=== PATIENT | female | born 1955 | race Caucasian/White ===

== ENCOUNTER → 2016-12-26 | Outpatient (CLI) | payer OTHER ==
[~2016-12-26] MED LIST: ATIVAN0.5 MG PO; CHOLESTYRA PO; CLONAZEPAM0.5 MG PO; FLONASE ALLERG9.9 ML NS; HYZAAR 100-12.1 EACH PO; LOSARTAN POTASS1 TA2 PO; METOPROLOL TART25 MG PO; PRILOSEC 20MG20 MG PO; SERTRALINE100 MG PO; SYNTHROID PO; TOPROL XL 25MG25 MG PO
== END ==
LOC: LAB 16:19
DX: Z00.00 Encounter for general adult medical examination without abnormal findings (principal); E11.9 Type 2 diabetes mellitus without complications; E03.4 Atrophy of thyroid (acquired); M85.80 Other specified disorders of bone density and structure, unspecified site

== ENCOUNTER → 2017-01-03 | Outpatient (CLI) | payer OTHER ==
[2016-03-30 10:54] VITALS: BP 123/79
== END ==
LOC: LAB 16:45
DX: Z12.11 Encounter for screening for malignant neoplasm of colon (principal)

== ENCOUNTER → 2017-02-21 | Outpatient (CLI) | payer OTHER ==
[2016-03-30 10:54] VITALS: BP 123/79
== END ==
LOC: LAB 15:34
DX: R23.3 Spontaneous ecchymoses (principal)

== ENCOUNTER → 2017-05-16 | Outpatient (CLI) | payer OTHER ==
[2016-03-30 10:54] VITALS: BP 123/79
== END ==
LOC: LAB 15:26
DX: Z00.00 Encounter for general adult medical examination without abnormal findings (principal); K90.9 Intestinal malabsorption, unspecified

== ENCOUNTER → 2017-11-01 | Outpatient (CLI) | payer BC ==
[2016-03-30 10:54] VITALS: BP 123/79
== END ==
LOC: MAMMO 15:08 → RAD 15:15
DX: Z12.31 Encounter for screening mammogram for malignant neoplasm of breast (principal)

== ENCOUNTER → 2017-12-21 | Outpatient (CLI) | payer BC ==
[2016-03-30 10:54] VITALS: BP 123/79
[2017-12-21 12:12] LABS: EOS # 0.1 (0.04-0.40); EOS % 2.1 % (1.0-5.0); HEMATOCRIT 41.1 % (37.0-47.0); HEMOGLOBIN 13.3 g/dL (12.5-16.0); LYMPH# 1.4 (1.50-4.00); MEAN CELL VOLUME 83 fl (78-100); MEAN CORPUSCULAR HEMOGLOBIN 27 pg (27-31); MEAN CORPUSCULAR HGB CONC 32 g/dL (33-37); MEAN PLATELET VOLUME 8.8 fl (7.4-10.4); MONO # 0.4 (0.20-0.80); NEU # 4.3 (1.40-6.50); PLATELET COUNT 259 K/mm3 (130-400); RED BLOOD COUNT 4.97 M/mm3 (4.10-5.30); RED CELL DISTRIBUTION WIDTH 15.8 % (11.5-14.5); WHITE BLOOD COUNT 6.3 K/mm3 (4.8-10.8)
[2017-12-21 12:26] LABS: ALBUMIN 4.4 g/dL (3.5-5.0); BUN/CREATININE RATIO 15.2 (6.0-26.0); CALCIUM 9.4 mg/dL (8.4-10.2); POTASSIUM 3.8 mmol/L (3.6-5.0); TOTAL BILIRUBIN 0.3 mg/dL (0.2-1.3); TOTAL PROTEIN 7.5 g/dL (6.3-8.2)
[2017-12-21 12:48] LABS: URINE APPEARANCE HAZY; URINE BILIRUBIN NEGATIVE (NEGATIVE); URINE BLOOD NEGATIVE (NEGATIVE); URINE COLOR YELLOW; URINE GLUCOSE NEGATIVE (NEGATIVE); URINE KETONE NEGATIVE (NEGATIVE); URINE LEUKOCYTE ESTERASE NEGATIVE (NEGATIVE); URINE NITRATE NEGATIVE (NEGATIVE); URINE PROTEIN(semi-quant) NEGATIVE (NEGATIVE); URINE UROBILINOGEN NORMAL (NORMAL)
== END ==
LOC: LAB 11:56
PROVIDERS: Nurse Practitioner Family
DX: R53.81 Other malaise (principal); R10.32 Left lower quadrant pain; R19.7 Diarrhea, unspecified; J01.01 Acute recurrent maxillary sinusitis; R10.84 Generalized abdominal pain

== ENCOUNTER → 2018-03-01 | Outpatient (CLI) | payer BC ==
[2016-03-30 10:54] VITALS: BP 123/79
[2018-03-01 09:51] LABS: EOS # 0.1 (0.04-0.40); EOS % 2.2 % (1.0-5.0); HEMATOCRIT 39.2 % (37.0-47.0); HEMOGLOBIN 12.7 g/dL (12.5-16.0); LYMPH# 1.1 (1.50-4.00); MEAN CELL VOLUME 83 fl (78-100); MEAN CORPUSCULAR HEMOGLOBIN 27 pg (27-31); MEAN CORPUSCULAR HGB CONC 32 g/dL (33-37); MEAN PLATELET VOLUME 8.9 fl (7.4-10.4); MONO # 0.4 (0.20-0.80); NEU # 4.8 (1.40-6.50); PLATELET COUNT 247 K/mm3 (130-400); RED CELL DISTRIBUTION WIDTH 15.8 % (11.5-14.5); WHITE BLOOD COUNT 6.5 K/mm3 (4.8-10.8)
[2018-03-01 10:08] LABS: ALBUMIN 4.3 g/dL (3.5-5.0); CALCIUM 9.1 mg/dL (8.4-10.2); POTASSIUM 4.1 mmol/L (3.6-5.0); TOTAL BILIRUBIN 0.6 mg/dL (0.2-1.3); TOTAL PROTEIN 7.6 g/dL (6.3-8.2)
[2018-03-01 10:53] LABS: ERYTHROCYTE SEDIMENTATION RATE 37 mm/hr (0-30); PH-URINE 6.5 (5.0 - 8.0); URINE APPEARANCE CLEAR; URINE BILIRUBIN NEGATIVE (NEGATIVE); URINE BLOOD NEGATIVE (NEGATIVE); URINE COLOR YELLOW; URINE GLUCOSE NEGATIVE (NEGATIVE); URINE KETONE NEGATIVE (NEGATIVE); URINE LEUKOCYTE ESTERASE NEGATIVE (NEGATIVE); URINE NITRATE NEGATIVE (NEGATIVE); URINE PROTEIN(semi-quant) NEGATIVE (NEGATIVE); URINE UROBILINOGEN NORMAL (NORMAL)
== END ==
LOC: LAB 09:28
PROVIDERS: Internal Medicine
DX: Z00.00 Encounter for general adult medical examination without abnormal findings (principal); Z12.11 Encounter for screening for malignant neoplasm of colon

== ENCOUNTER → 2018-03-06 | Outpatient (CLI) | payer BC ==
[2016-03-30 10:54] VITALS: BP 123/79
== END ==
LOC: LAB 16:06
DX: Z00.00 Encounter for general adult medical examination without abnormal findings (principal); Z12.11 Encounter for screening for malignant neoplasm of colon

== ENCOUNTER 2018-06-20 13:58 | Emergency (ER) | payer BC ==
[~2018-06-20] VITALS: Ht 160 cm; Wt 88.6 kg
[2018-06-20] MEDS ORDERED: ABILIFY5 MG PO (14:08)
[2018-06-20] MEDS ORDERED: WELLBUTRIN XL300 M1 PO (14:08)
[2018-06-20] MEDS ORDERED: CYMBALTA60 M1 PO (14:08)
[2018-06-20 14:30] LABS: EOS # 0.2 (0.04-0.40); EOS % 2.6 % (1.0-5.0); HEMOGLOBIN 12.2 g/dL (12.5-16.0); LYMPH# 1.6 (1.50-4.00); MEAN CELL VOLUME 84 fl (78-100); MEAN CORPUSCULAR HEMOGLOBIN 28 pg (27-31); MEAN CORPUSCULAR HGB CONC 33 g/dL (33-37); MEAN PLATELET VOLUME 8.9 fl (7.4-10.4); MONO # 0.5 (0.20-0.80); NEU # 5.4 (1.40-6.50); PLATELET COUNT 265 K/mm3 (130-400); RED BLOOD COUNT 4.43 M/mm3 (4.10-5.30); WHITE BLOOD COUNT 7.7 K/mm3 (4.8-10.8)
[2018-06-20 14:45] LABS: ALBUMIN 4.1 g/dL (3.5-5.0); CALCIUM 8.9 mg/dL (8.4-10.2); POTASSIUM 3.6 mmol/L (3.6-5.0); TOTAL BILIRUBIN 0.5 mg/dL (0.2-1.3); TOTAL PROTEIN 6.7 g/dL (6.3-8.2)
[2018-06-20 15:07] LABS: URINE APPEARANCE HAZY; URINE BILIRUBIN NEGATIVE (NEGATIVE); URINE COLOR YELLOW; URINE GLUCOSE NEGATIVE (NEGATIVE); URINE KETONE NEGATIVE (NEGATIVE); URINE NITRATE NEGATIVE (NEGATIVE); URINE PROTEIN(semi-quant) NEGATIVE (NEGATIVE); URINE UROBILINOGEN NORMAL (NORMAL)
[2018-06-20 15:08] LABS: URINE BLOOD NEGATIVE (NEGATIVE); URINE LEUKOCYTE ESTERASE 1+ (NEGATIVE)
[2018-06-20] MEDS ORDERED: MACROBID 100 M100 MG PO (15:18)
[2018-06-20 15:21] VITALS: BP 140/75
== END 2018-06-20 15:20 | disposition home or self-care (01) ==
LOC: ED 13:58
PROVIDERS: Nurse Practitioner
DX: R53.81 Other malaise (principal); R53.83 Other fatigue; R63.8 Other symptoms and signs concerning food and fluid intake; R42 Dizziness and giddiness; R82.71 Bacteriuria; Z79.899 Other long term (current) drug therapy

== ENCOUNTER → 2018-10-11 | Outpatient (CLI) | payer BC ==
[~2018-10-11] MED LIST changes: +ABILIFY5 MG PO; +CYMBALTA60 M1 PO; +MACROBID 100 M100 MG PO; +WELLBUTRIN XL300 M1 PO
[2018-10-11 14:35] LABS: HEMATOCRIT 43.4 % (37.0-47.0); HEMOGLOBIN 13.9 g/dL (12.5-16.0); MEAN CELL VOLUME 84 fl (78-100); MEAN CORPUSCULAR HEMOGLOBIN 27 pg (27-31); MEAN CORPUSCULAR HGB CONC 32 g/dL (33-37); MEAN PLATELET VOLUME 8.8 fl (7.4-10.4); PLATELET COUNT 326 K/mm3 (130-400); RED BLOOD COUNT 5.15 M/mm3 (4.10-5.30); RED CELL DISTRIBUTION WIDTH 15.5 % (11.5-14.5); WHITE BLOOD COUNT 11.6 K/mm3 (4.8-10.8)
[2018-10-11 14:42] LABS: ALBUMIN 4.8 g/dL (3.5-5.0); POTASSIUM 4.4 mmol/L (3.6-5.0); TOTAL BILIRUBIN 0.5 mg/dL (0.2-1.3); TOTAL PROTEIN 7.9 g/dL (6.3-8.2)
[2018-10-11 15:56] LABS: LYMPHOCYTE 6 % (20-51); MONOCYTE 6 % (3-10); NEUTROPHILS 88 % (42-75)
== END ==
LOC: RAD 14:14
PROVIDERS: Internal Medicine
DX: R06.02 Shortness of breath (principal); R05 Cough; Z98.890 Other specified postprocedural states

== ENCOUNTER 2018-10-20 18:32 | Observation (INO) | payer BC ==
[~2018-10-20] VITALS: Ht 7.6 cm; Wt 85.8 kg
[2018-10-20] MEDS ORDERED: OMEPRAZOLE40 MG PO (18:44)
[2018-10-20] MEDS ORDERED: TESSALON PERLE100 M1 PO (18:45)
[2018-10-20] MEDS ORDERED: COL-RITE100 M1 PO (18:45)
[2018-10-20 18:50] VITALS: BP 123/71
[2018-10-20 19:28] LABS: EOS # 0.1 (0.04-0.40); EOS % 1.2 % (1.0-5.0); HEMATOCRIT 36.4 % (37.0-47.0); HEMOGLOBIN 12.8 g/dL (12.5-16.0); LYMPH# 1.7 (1.50-4.00); MEAN CELL VOLUME 79 fl (78-100); MEAN CORPUSCULAR HEMOGLOBIN 28 pg (27-31); MEAN CORPUSCULAR HGB CONC 35 g/dL (33-37); MEAN PLATELET VOLUME 9.4 fl (7.4-10.4); MONO # 0.9 (0.20-0.80); NEU # 6.5 (1.40-6.50); PLATELET COUNT 313 K/mm3 (130-400); RED BLOOD COUNT 4.63 M/mm3 (4.10-5.30); RED CELL DISTRIBUTION WIDTH 14.6 % (11.5-14.5); WHITE BLOOD COUNT 9.3 K/mm3 (4.8-10.8)
[2018-10-20 19:34] LABS: ALBUMIN 4.6 g/dL (3.5-5.0); CALCIUM 9.3 mg/dL (8.4-10.2); POTASSIUM 4.4 mmol/L (3.6-5.0); TOTAL BILIRUBIN 0.8 mg/dL (0.2-1.3); TOTAL PROTEIN 7.4 g/dL (6.3-8.2)
[2018-10-20] MEDS ORDERED: VITAMIN D32000 UNI1 PO (20:26)
[2018-10-20] MEDS ORDERED: CALCIUM 600600 MG PO (20:27)
[2018-10-20] MEDS ORDERED: PREDNISONE1 MG (20:28)
[2018-10-20] MEDS ORDERED: COLACE100 M1 PO (20:28)
[2018-10-20 20:33] VITALS: BP 132/78
[2018-10-20 23:13] VITALS: BP 114/71
[2018-10-20 23:14] VITALS: BP 114/71
[2018-10-21 02:56] VITALS: BP 116/67
[2018-10-21 06:33] VITALS: BP 112/71
[2018-10-21 08:20] LABS: EOS # 0.1 (0.04-0.40); EOS % 1.7 % (1.0-5.0); HEMATOCRIT 40.2 % (37.0-47.0); HEMOGLOBIN 13.7 g/dL (12.5-16.0); LYMPH# 1.3 (1.50-4.00); MEAN CELL VOLUME 80 fl (78-100); MEAN CORPUSCULAR HEMOGLOBIN 27 pg (27-31); MEAN CORPUSCULAR HGB CONC 34 g/dL (33-37); MEAN PLATELET VOLUME 9.4 fl (7.4-10.4); MONO # 0.6 (0.20-0.80); NEU # 3.7 (1.40-6.50); PLATELET COUNT 237 K/mm3 (130-400); RED BLOOD COUNT 5.02 M/mm3 (4.10-5.30); RED CELL DISTRIBUTION WIDTH 14.9 % (11.5-14.5); WHITE BLOOD COUNT 5.7 K/mm3 (4.8-10.8)
[2018-10-21 08:30] LABS: URINE APPEARANCE CLEAR; URINE BILIRUBIN NEGATIVE (NEGATIVE); URINE BLOOD NEGATIVE (NEGATIVE); URINE COLOR YELLOW; URINE GLUCOSE NEGATIVE (NEGATIVE); URINE KETONE 1+ (NEGATIVE); URINE LEUKOCYTE ESTERASE TRACE (NEGATIVE); URINE NITRATE NEGATIVE (NEGATIVE); URINE PROTEIN(semi-quant) TRACE mg/dL (NEGATIVE); URINE UROBILINOGEN NORMAL (NORMAL)
[2018-10-21 08:31] LABS: CALCIUM 8.8 mg/dL (8.4-10.2); POTASSIUM 4.3 mmol/L (3.6-5.0)
[2018-10-21 11:00] VITALS: BP 121/77
[2018-10-22 12:44] LABS: CORTISOL, AM (0800) 15 ug/dL (3-20)
[2018-10-23 13:06] LABS: ADRENOCORTICOTROPIC HORMONE 43 pg/mL (())
== END 2018-10-21 11:39 | disposition home or self-care (01) ==
LOC: LAB 18:32 → AMSURD 18:32 → MED/SURG 21:24
PROVIDERS: Physician Assistant; ADMIT Family Medicine
DX: E87.1 Hypo-osmolality and hyponatremia (principal); E86.9 Volume depletion, unspecified; J40 Bronchitis, not specified as acute or chronic; J32.9 Chronic sinusitis, unspecified; E11.9 Type 2 diabetes mellitus without complications; F41.9 Anxiety disorder, unspecified; I10 Essential (primary) hypertension; F32.9 Major depressive disorder, single episode, unspecified; E03.9 Hypothyroidism, unspecified; K21.9 Gastro-esophageal reflux disease without esophagitis; G47.33 Obstructive sleep apnea (adult) (pediatric); K29.70 Gastritis, unspecified, without bleeding; N28.9 Disorder of kidney and ureter, unspecified; Z88.2 Allergy status to sulfonamides
CPT/HCPCS: G0378; G0379; J1650; J7030

== ENCOUNTER → 2018-10-24 | Outpatient (CLI) | payer BC ==
[2018-10-21 11:00] VITALS: BP 121/77
[~2018-10-24] MED LIST changes: +CALCIUM 600600 MG PO; +COL-RITE100 M1 PO; +COLACE100 M1 PO; +OMEPRAZOLE40 MG PO; +PREDNISONE1 MG; +TESSALON PERLE100 M1 PO; +VITAMIN D32000 UNI1 PO
[2018-10-24 07:42] LABS: CALCIUM 9.6 mg/dL (8.4-10.2); POTASSIUM 3.7 mmol/L (3.6-5.0)
== END ==
LOC: LAB 07:14
PROVIDERS: Internal Medicine
DX: E87.1 Hypo-osmolality and hyponatremia (principal)

== ENCOUNTER → 2018-11-02 | Outpatient (CLI) | payer BC ==
[2018-10-21 11:00] VITALS: BP 121/77
[2018-11-02 19:58] LABS: CALCIUM 9.4 mg/dL (8.4-10.2); POTASSIUM 3.9 mmol/L (3.6-5.0)
== END ==
LOC: LAB 18:43
PROVIDERS: Internal Medicine
DX: E87.1 Hypo-osmolality and hyponatremia (principal)

== ENCOUNTER → 2018-12-06 | Outpatient (CLI) | payer BC | LOC: MAMMO 10:00 | DX: Z13.820 Encounter for screening for osteoporosis (principal); Z12.31 Encounter for screening mammogram for malignant neoplasm of breast ==

== ENCOUNTER 2019-02-04 15:26 | Emergency (ER) | payer BC ==
[~2019-02-04] VITALS: Ht 162.6 cm; Wt 79.5 kg
[2019-02-04] MEDS ORDERED: LEVOTHYROXINE0.05 MG PO (15:33)
[2019-02-04] MEDS ORDERED: LOPRESSOR 225 MG/TAB PO (15:34)
[2019-02-04] MEDS ORDERED: COLACE100 M1 PO (15:51)
[2019-02-04 16:12] LABS: EOS # 0.2 (0.04-0.40); EOS % 1.9 % (1.0-5.0); HEMATOCRIT 42.7 % (37.0-47.0); HEMOGLOBIN 13.7 g/dL (12.5-16.0); LYMPH# 1.5 (1.50-4.00); MEAN CELL VOLUME 83 fl (78-100); MEAN CORPUSCULAR HEMOGLOBIN 27 pg (27-31); MEAN CORPUSCULAR HGB CONC 32 g/dL (33-37); MEAN PLATELET VOLUME 9.4 fl (7.4-10.4); MONO # 0.6 (0.20-0.80); NEU # 7.2 (1.40-6.50); PLATELET COUNT 311 K/mm3 (130-400); RED BLOOD COUNT 5.13 M/mm3 (4.10-5.30); RED CELL DISTRIBUTION WIDTH 14.3 % (11.5-14.5); WHITE BLOOD COUNT 9.5 K/mm3 (4.8-10.8)
[2019-02-04 16:28] LABS: ALBUMIN 4.3 g/dL (3.4-4.8); CALCIUM 9.9 mg/dL (8.4-10.2); POTASSIUM 3.5 mmol/L (3.5-5.1); TOTAL BILIRUBIN 0.3 mg/dL (0.2-1.2); TOTAL PROTEIN 7.3 g/dL (6.2-8.1)
[2019-02-04 18:53] VITALS: BP 166/95
== END 2019-02-04 18:45 | disposition home or self-care (01) ==
LOC: ED 15:26
PROVIDERS: Nurse Practitioner Primary Care
DX: R19.7 Diarrhea, unspecified (principal); R10.9 Unspecified abdominal pain; I10 Essential (primary) hypertension; E03.9 Hypothyroidism, unspecified; K21.9 Gastro-esophageal reflux disease without esophagitis; K58.9 Irritable bowel syndrome, unspecified
CPT/HCPCS: J2405; J7030

== ENCOUNTER → 2019-02-07 | Outpatient (CLI) | payer BC, MEDICAID ==
[~2019-02-07] VITALS: Ht 162.6 cm; Wt 79.5 kg
[~2019-02-07] MED LIST changes: +LEVOTHYROXINE0.05 MG PO; +LOPRESSOR 225 MG/TAB PO
[2019-02-07 17:34] LABS: BASO # 0.1 (0.02-0.10); EOS # 0.2 (0.04-0.40); EOS % 2.1 % (1.0-5.0); HEMATOCRIT 41.7 % (37.0-47.0); HEMOGLOBIN 13.3 g/dL (12.5-16.0); LYMPH# 2.1 (1.50-4.00); MEAN CELL VOLUME 84 fl (78-100); MEAN CORPUSCULAR HEMOGLOBIN 27 pg (27-31); MEAN CORPUSCULAR HGB CONC 32 g/dL (33-37); MEAN PLATELET VOLUME 9.1 fl (7.4-10.4); MONO # 0.6 (0.20-0.80); NEU # 7.1 (1.40-6.50); PLATELET COUNT 341 K/mm3 (130-400); RED BLOOD COUNT 4.99 M/mm3 (4.10-5.30); RED CELL DISTRIBUTION WIDTH 14.2 % (11.5-14.5); WHITE BLOOD COUNT 10.1 K/mm3 (4.8-10.8)
[2019-02-07 18:00] VITALS: BP 176/96
[2019-02-07 18:04] LABS: PROTHROMBIN TIME 9.9 SECONDS (9.0-12.0)
[2019-02-07 18:16] LABS: URINE APPEARANCE CLEAR; URINE BILIRUBIN NEGATIVE (NEGATIVE); URINE BLOOD NEGATIVE (NEGATIVE); URINE COLOR LIGHT YELLOW; URINE GLUCOSE NEGATIVE (NEGATIVE); URINE KETONE NEGATIVE (NEGATIVE); URINE LEUKOCYTE ESTERASE NEGATIVE (NEGATIVE); URINE NITRATE NEGATIVE (NEGATIVE); URINE PROTEIN(semi-quant) TRACE mg/dL (NEGATIVE); URINE UROBILINOGEN NORMAL (NORMAL)
[2019-02-07 18:34] LABS: ALBUMIN 4.5 g/dL (3.4-4.8); CALCIUM 9.9 mg/dL (8.4-10.2); POTASSIUM 3.5 mmol/L (3.5-5.1); TOTAL BILIRUBIN 0.4 mg/dL (0.2-1.2); TOTAL PROTEIN 7.5 g/dL (6.2-8.1)
== END ==
LOC: LAB 17:16
PROVIDERS: Internal Medicine
DX: Z01.818 Encounter for other preprocedural examination (principal); M17.0 Bilateral primary osteoarthritis of knee

== ENCOUNTER → 2019-02-11 | Outpatient (CLI) | payer BC ==
[2019-02-07 18:00] VITALS: BP 176/96
== END ==
LOC: RAD 07:12
DX: Z01.818 Encounter for other preprocedural examination (principal); M17.0 Bilateral primary osteoarthritis of knee

== ENCOUNTER 2019-05-07 16:00 | Outpatient (RCR) | payer BC ==
[2019-02-07 18:00] VITALS: BP 176/96
== END 2019-05-23 | disposition still patient (30) ==
LOC: PT
DX: Z47.1 Aftercare following joint replacement surgery (principal); M17.11 Unilateral primary osteoarthritis, right knee; Z96.651 Presence of right artificial knee joint

== ENCOUNTER → 2019-05-24 | Outpatient (CLI) | payer BC ==
[2019-02-07 18:00] VITALS: BP 176/96
[2019-05-24 16:38] LABS: EOS # 0.2 (0.04-0.40); EOS % 2.4 % (1.0-5.0); HEMATOCRIT 39.9 % (37.0-47.0); HEMOGLOBIN 12.6 g/dL (12.5-16.0); LYMPH# 1.4 (1.50-4.00); MEAN CELL VOLUME 83 fl (78-100); MEAN CORPUSCULAR HEMOGLOBIN 26 pg (27-31); MEAN CORPUSCULAR HGB CONC 32 g/dL (33-37); MEAN PLATELET VOLUME 8.8 fl (7.4-10.4); MONO # 0.4 (0.20-0.80); NEU # 4.7 (1.40-6.50); PLATELET COUNT 281 K/mm3 (130-400); RED BLOOD COUNT 4.79 M/mm3 (4.10-5.30); RED CELL DISTRIBUTION WIDTH 15.1 % (11.5-14.5); WHITE BLOOD COUNT 6.6 K/mm3 (4.8-10.8)
[2019-05-24 16:48] LABS: POTASSIUM 3.6 mmol/L (3.5-5.1); SODIUM 140 mmol/L (136-145)
[2019-05-24 16:49] LABS: ALBUMIN 4.3 g/dL (3.4-4.8)
[2019-05-24 16:50] LABS: CALCIUM 9.3 mg/dL (8.3-10.5)
[2019-05-24 16:51] LABS: GLUCOSE 120 mg/dL (65-105); TOTAL PROTEIN 7.1 g/dL (6.2-8.1)
[2019-05-24 16:52] LABS: CARBON DIOXIDE 26 mmol/L (23-31)
[2019-05-24 16:53] LABS: TOTAL BILIRUBIN 0.2 mg/dL (0.2-1.2)
[2019-05-24 16:56] LABS: AST-SGOT 16 U/L (5-34)
[2019-05-24 16:58] LABS: ALT/SGPT 12 U/L (0-55)
[2019-05-24 17:44] LABS: ERYTHROCYTE SEDIMENTATION RATE 22 mm/hr (0-30)
[2019-05-24 18:00] LABS: URINE APPEARANCE HAZY; URINE BILIRUBIN NEGATIVE (NEGATIVE); URINE BLOOD NEGATIVE (NEGATIVE); URINE COLOR YELLOW; URINE GLUCOSE NEGATIVE (NEGATIVE); URINE KETONE NEGATIVE (NEGATIVE); URINE LEUKOCYTE ESTERASE 1+ (NEGATIVE); URINE NITRATE NEGATIVE (NEGATIVE); URINE PROTEIN(semi-quant) 1+ mg/dL (NEGATIVE); URINE UROBILINOGEN NORMAL (NORMAL); URINE WBC 31-50 /hpf (0-3)
[2019-05-24 18:01] LABS: URINE MUCUS PRESENT (NOT PRESENT)
== END ==
LOC: LAB 16:21
PROVIDERS: Internal Medicine
DX: Z00.00 Encounter for general adult medical examination without abnormal findings (principal); Z12.11 Encounter for screening for malignant neoplasm of colon; E55.9 Vitamin D deficiency, unspecified

== ENCOUNTER → 2019-06-03 | Outpatient (CLI) | payer BC ==
[2019-02-07 18:00] VITALS: BP 176/96
== END ==
LOC: LAB 16:25
DX: Z00.00 Encounter for general adult medical examination without abnormal findings (principal); Z12.11 Encounter for screening for malignant neoplasm of colon

== ENCOUNTER 2019-11-12 12:45 | Emergency (ER) | payer SELFPAY ==
[~2019-11-12] VITALS: Ht 160 cm; Wt 82.3 kg
[2019-11-12 13:15] LABS: EOS # 0.1 (0.04-0.40); EOS % 2.2 % (1.0-5.0); HEMATOCRIT 42.2 % (37.0-47.0); HEMOGLOBIN 13.5 g/dL (12.5-16.0); LYMPH# 1.1 (1.50-4.00); MEAN CELL VOLUME 84 fl (78-100); MEAN CORPUSCULAR HEMOGLOBIN 27 pg (27-31); MEAN CORPUSCULAR HGB CONC 32 g/dL (33-37); MEAN PLATELET VOLUME 8.8 fl (7.4-10.4); MONO # 0.5 (0.20-0.80); NEU # 4.6 (1.40-6.50); PLATELET COUNT 250 K/mm3 (130-400); RED BLOOD COUNT 5.04 M/mm3 (4.10-5.30); RED CELL DISTRIBUTION WIDTH 15.2 % (11.5-14.5); WHITE BLOOD COUNT 6.3 K/mm3 (4.8-10.8)
[2019-11-12 13:27] LABS: ALBUMIN 4.4 g/dL (3.4-4.8); POTASSIUM 3.9 mmol/L (3.5-5.1)
[2019-11-12 13:28] LABS: CALCIUM 8.9 mg/dL (8.3-10.5)
[2019-11-12 13:29] LABS: TOTAL PROTEIN 7.2 g/dL (6.2-8.1)
[2019-11-12 13:31] LABS: TOTAL BILIRUBIN 0.3 mg/dL (0.2-1.2)
[2019-11-12 13:42] LABS: TROPONIN-I 0.09 ng/mL (<0.030)
[2019-11-12] MEDS ORDERED: MELOXICAM15 MG PO (14:33)
[2019-11-12 17:43] VITALS: BP 172/88
== END 2019-11-12 17:50 | disposition short-term general hospital (02) ==
LOC: ED 12:45
PROVIDERS: Nurse Practitioner Family
DX: J01.90 Acute sinusitis, unspecified (principal); R79.89 Other specified abnormal findings of blood chemistry; I10 Essential (primary) hypertension; E11.9 Type 2 diabetes mellitus without complications; K21.9 Gastro-esophageal reflux disease without esophagitis; F41.9 Anxiety disorder, unspecified; Z96.651 Presence of right artificial knee joint
CPT/HCPCS: J1650; J7030

== ENCOUNTER → 2019-12-05 | Outpatient (CLI) | payer BC ==
[2019-11-12 17:43] VITALS: BP 172/88
[~2019-12-05] MED LIST changes: +MELOXICAM15 MG PO
== END ==
LOC: MAMMO 08:30
DX: Z12.31 Encounter for screening mammogram for malignant neoplasm of breast (principal)

== ENCOUNTER → 2020-05-26 | Outpatient (CLI) | payer MEDICARE, BC ==
[2020-05-26 09:40] LABS: EOS # 0.2 (0.04-0.40); EOS % 2.8 % (1.0-5.0); HEMATOCRIT 42.4 % (37.0-47.0); HEMOGLOBIN 13.7 g/dL (12.5-16.0); LYMPH# 1.5 (1.50-4.00); MEAN CELL VOLUME 83 fl (78-100); MEAN CORPUSCULAR HEMOGLOBIN 27 pg (27-31); MEAN CORPUSCULAR HGB CONC 32 g/dL (33-37); MEAN PLATELET VOLUME 8.9 fl (7.4-10.4); MONO # 0.5 (0.20-0.80); NEU # 5.7 (1.40-6.50); PLATELET COUNT 274 K/mm3 (130-400); RED BLOOD COUNT 5.09 M/mm3 (4.10-5.30); RED CELL DISTRIBUTION WIDTH 15.3 % (11.5-14.5); WHITE BLOOD COUNT 7.9 K/mm3 (4.8-10.8)
[2020-05-26 09:48] LABS: ALBUMIN 4.5 g/dL (3.4-4.8)
[2020-05-26 09:49] LABS: CALCIUM 9.3 mg/dL (8.3-10.5)
[2020-05-26 09:50] LABS: TOTAL PROTEIN 7.3 g/dL (6.2-8.1)
[2020-05-26 09:52] LABS: TOTAL BILIRUBIN 0.4 mg/dL (0.2-1.2)
[2020-05-26 10:21] LABS: PH-URINE 5.5 (5.0 - 8.0); URINE APPEARANCE CLOUDY; URINE BILIRUBIN NEGATIVE (NEGATIVE); URINE BLOOD NEGATIVE (NEGATIVE); URINE COLOR YELLOW; URINE GLUCOSE NEGATIVE (NEGATIVE); URINE KETONE NEGATIVE (NEGATIVE); URINE LEUKOCYTE ESTERASE TRACE (NEGATIVE); URINE MUCUS PRESENT (NOT PRESENT); URINE NITRATE NEGATIVE (NEGATIVE); URINE PROTEIN(semi-quant) 1+ mg/dL (NEGATIVE); URINE UROBILINOGEN NORMAL (NORMAL)
[2020-05-26 10:44] LABS: ERYTHROCYTE SEDIMENTATION RATE 17 mm/hr (0-30)
== END ==
LOC: LAB 09:27
PROVIDERS: Internal Medicine
DX: Z00.00 Encounter for general adult medical examination without abnormal findings (principal); Z12.11 Encounter for screening for malignant neoplasm of colon; M16.0 Bilateral primary osteoarthritis of hip; E11.9 Type 2 diabetes mellitus without complications; K90.9 Intestinal malabsorption, unspecified; E03.9 Hypothyroidism, unspecified

== ENCOUNTER → 2020-07-31 | Outpatient (CLI) | payer MEDICARE, BC | LOC: LAB 08:45 | DX: R05 Cough (principal); R51.9 Headache, unspecified; R11.10 Vomiting, unspecified; R53.83 Other fatigue; Z20.828 Contact with and (suspected) exposure to other viral communicable diseases ==

== ENCOUNTER → 2020-08-11 | Outpatient (CLI) | payer MEDICARE, BC ==
[2020-08-11 13:26] LABS: ALBUMIN 4.7 g/dL (3.4-4.8); POTASSIUM 4.6 mmol/L (3.5-5.1)
[2020-08-11 13:27] LABS: CALCIUM 10.3 mg/dL (8.3-10.5)
[2020-08-11 13:29] LABS: TOTAL PROTEIN 7.7 g/dL (6.2-8.1)
[2020-08-11 13:30] LABS: TOTAL BILIRUBIN 0.5 mg/dL (0.2-1.2)
[2020-08-11 13:32] LABS: EOS # 0.2 (0.04-0.40); EOS % 2.3 % (1.0-5.0); HEMATOCRIT 44.2 % (37.0-47.0); HEMOGLOBIN 14.4 g/dL (12.5-16.0); LYMPH# 1.4 (1.50-4.00); MEAN CELL VOLUME 84 fl (78-100); MEAN CORPUSCULAR HEMOGLOBIN 27 pg (27-31); MEAN CORPUSCULAR HGB CONC 33 g/dL (33-37); MEAN PLATELET VOLUME 9.5 fl (7.4-10.4); MONO # 0.7 (0.20-0.80); NEU # 5.6 (1.40-6.50); PLATELET COUNT 310 K/mm3 (130-400); RED BLOOD COUNT 5.28 M/mm3 (4.10-5.30); RED CELL DISTRIBUTION WIDTH 14.9 % (11.5-14.5); WHITE BLOOD COUNT 7.9 K/mm3 (4.8-10.8)
[2020-08-11 14:20] LABS: ERYTHROCYTE SEDIMENTATION RATE 27 mm/hr (0-30)
== END ==
LOC: LAB 12:56
PROVIDERS: Nurse Practitioner
DX: R19.7 Diarrhea, unspecified (principal)

== ENCOUNTER 2020-10-01 08:45 | Outpatient (RCR) | payer MEDICARE, BC | END 2020-10-23 12:32 | LOC: OPPGERO 08:45 | DX: F32.9 Major depressive disorder, single episode, unspecified (principal) ==

== ENCOUNTER 2020-10-26 09:25 | Outpatient (RCR) | payer MEDICARE, BC | END 2020-11-20 16:08 | disposition home or self-care (01) | LOC: OPPGERO 09:25 | DX: F43.22 Adjustment disorder with anxiety (principal); F33.8 Other recurrent depressive disorders; I10 Essential (primary) hypertension; F41.8 Other specified anxiety disorders; E11.9 Type 2 diabetes mellitus without complications; E03.9 Hypothyroidism, unspecified; G47.33 Obstructive sleep apnea (adult) (pediatric); K29.70 Gastritis, unspecified, without bleeding; Z87.828 Personal history of other (healed) physical injury and trauma; Z81.1 Family history of alcohol abuse and dependence ==

== ENCOUNTER 2020-11-23 09:04 | Outpatient (RCR) | payer MEDICARE, BC | END 2020-12-23 15:02 | disposition home or self-care (01) | LOC: OPPGERO 09:04 | DX: F33.9 Major depressive disorder, recurrent, unspecified (principal); F43.22 Adjustment disorder with anxiety; I10 Essential (primary) hypertension; E11.9 Type 2 diabetes mellitus without complications; E03.9 Hypothyroidism, unspecified; G47.33 Obstructive sleep apnea (adult) (pediatric); K29.70 Gastritis, unspecified, without bleeding; Z87.828 Personal history of other (healed) physical injury and trauma ==

== ENCOUNTER → 2020-12-15 | Outpatient (CLI) | payer MEDICARE, BC ==
[~2020-12-15] MED LIST changes: +ABILIFY2 MG PO; +ARICEPT10 M1 PO; +COZAAR 50MG50 MG/TAB PO; +DESYREL50 MG PO; +GOOD SENSE ASPI81 M1 PO; +KLONOPIN 0.5MG0.5 MG PO; +NORVASC 5MG5 MG/TAB PO; +PRISTIQ100 MG PO; +WELLBUTRIN SR150 M2 PO
== END ==
LOC: MAMMO 09:42
DX: Z12.31 Encounter for screening mammogram for malignant neoplasm of breast (principal)

== ENCOUNTER → 2020-12-15 | Outpatient (CLI) | payer MEDICARE, BC | LOC: RAD 10:06 | DX: M85.89 Other specified disorders of bone density and structure, multiple sites (principal); M25.78 Osteophyte, vertebrae ==

== ENCOUNTER 2020-12-24 07:53 | Outpatient (RCR) | payer MEDICARE, BC ==
[~2020-12-24 07:53] MED LIST changes: -ABILIFY2 MG PO; -ARICEPT10 M1 PO; -COZAAR 50MG50 MG/TAB PO; -DESYREL50 MG PO; -GOOD SENSE ASPI81 M1 PO; -KLONOPIN 0.5MG0.5 MG PO; -NORVASC 5MG5 MG/TAB PO; -PRISTIQ100 MG PO; -WELLBUTRIN SR150 M2 PO
== END 2021-01-22 15:46 ==
LOC: OPPGERO 07:53
DX: F33.3 Major depressive disorder, recurrent, severe with psychotic symptoms (principal); F43.22 Adjustment disorder with anxiety

== ENCOUNTER 2021-01-25 08:21 | Outpatient (RCR) | payer MEDICARE, BC | END 2021-02-19 15:54 | disposition home or self-care (01) | LOC: OPPGERO 08:21 | DX: F33.1 Major depressive disorder, recurrent, moderate (principal); F43.22 Adjustment disorder with anxiety; I10 Essential (primary) hypertension; E66.9 Obesity, unspecified; E11.9 Type 2 diabetes mellitus without complications; E03.9 Hypothyroidism, unspecified; G47.33 Obstructive sleep apnea (adult) (pediatric); J30.9 Allergic rhinitis, unspecified; K29.70 Gastritis, unspecified, without bleeding; E87.1 Hypo-osmolality and hyponatremia; Z79.899 Other long term (current) drug therapy ==

== ENCOUNTER → 2021-04-22 | Outpatient (CLI) | payer MEDICARE, BC ==
[~2021-04-22] MED LIST changes: +ABILIFY2 MG PO; +ARICEPT10 M1 PO; +COZAAR 50MG50 MG/TAB PO; +DESYREL50 MG PO; +GOOD SENSE ASPI81 M1 PO; +KLONOPIN 0.5MG0.5 MG PO; +NORVASC 5MG5 MG/TAB PO; +PRISTIQ100 MG PO; +WELLBUTRIN SR150 M2 PO
[2021-04-22 11:04] LABS: URINE APPEARANCE HAZY; URINE BILIRUBIN NEGATIVE (NEGATIVE); URINE BLOOD NEGATIVE (NEGATIVE); URINE COLOR YELLOW; URINE GLUCOSE NEGATIVE (NEGATIVE); URINE KETONE NEGATIVE (NEGATIVE); URINE LEUKOCYTE ESTERASE NEGATIVE (NEGATIVE); URINE MUCUS PRESENT (NOT PRESENT); URINE NITRATE NEGATIVE (NEGATIVE); URINE PROTEIN(semi-quant) 1+ mg/dL (NEGATIVE); URINE UROBILINOGEN NORMAL (NORMAL)
== END ==
LOC: LAB 10:02
PROVIDERS: Internal Medicine
DX: E11.9 Type 2 diabetes mellitus without complications (principal); K90.9 Intestinal malabsorption, unspecified

== ENCOUNTER 2021-06-10 22:55 | Emergency (ER) | payer MEDICARE, BC ==
[~2021-06-10] VITALS: Ht 160 cm; Wt 77.3 kg
[~2021-06-10 22:55] MED LIST changes: -ABILIFY2 MG PO; -ARICEPT10 M1 PO; -COZAAR 50MG50 MG/TAB PO; -DESYREL50 MG PO; -GOOD SENSE ASPI81 M1 PO; -KLONOPIN 0.5MG0.5 MG PO; -NORVASC 5MG5 MG/TAB PO; -PRISTIQ100 MG PO; -WELLBUTRIN SR150 M2 PO
[2021-06-10] MEDS ORDERED: NORVASC 5MG5 MG/TAB PO (23:35)
[2021-06-10] MEDS ORDERED: COZAAR 50MG50 MG/TAB PO (23:36)
[2021-06-10] MEDS ORDERED: ABILIFY2 MG PO (23:37)
[2021-06-10] MEDS ORDERED: PRISTIQ100 MG PO (23:37)
[2021-06-10] MEDS ORDERED: KLONOPIN 0.5MG0.5 MG PO (23:38)
[2021-06-10] MEDS ORDERED: TOPROL XL 25MG25 MG PO (23:38)
[2021-06-10] MEDS ORDERED: DESYREL50 MG PO (23:39)
[2021-06-11 01:47] VITALS: BP 147/75
== END 2021-06-11 01:47 | disposition home or self-care (01) ==
LOC: ED 22:55
DX: T50.901A Poisoning by unspecified drugs, medicaments and biological substances, accidental (unintentional), initial encounter (principal); I10 Essential (primary) hypertension; E03.9 Hypothyroidism, unspecified; E11.9 Type 2 diabetes mellitus without complications; K21.9 Gastro-esophageal reflux disease without esophagitis; F32.9 Major depressive disorder, single episode, unspecified; F41.9 Anxiety disorder, unspecified; Z79.890 Hormone replacement therapy; Z79.899 Other long term (current) drug therapy

== ENCOUNTER → 2021-06-15 | Outpatient (CLI) | payer MEDICARE, BC ==
[~2021-06-15] MED LIST changes: +ABILIFY2 MG PO; +ARICEPT10 M1 PO; +COZAAR 50MG50 MG/TAB PO; +DESYREL50 MG PO; +GOOD SENSE ASPI81 M1 PO; +KLONOPIN 0.5MG0.5 MG PO; +NORVASC 5MG5 MG/TAB PO; +PRISTIQ100 MG PO; +WELLBUTRIN SR150 M2 PO
[2021-06-15 11:31] LABS: BASO # 0.03 (0.02-0.10); EOS # 0.18 (0.04-0.40); EOS % 2.3 % (1.0-5.0); HEMATOCRIT 41.8 % (37.0-47.0); HEMOGLOBIN 13.6 g/dL (12.5-16.0); LYMPH# 1.67 (1.50-4.00); MEAN CELL VOLUME 86 fl (78-100); MEAN CORPUSCULAR HEMOGLOBIN 28 pg (27-31); MEAN CORPUSCULAR HGB CONC 33 g/dL (33-37); MEAN PLATELET VOLUME 9.2 fl (7.4-10.4); MONO # 0.36 (0.20-0.80); NEU # 5.62 (1.40-6.50); PLATELET COUNT 264 K/mm3 (130-400); RED BLOOD COUNT 4.87 M/mm3 (4.10-5.30); RED CELL DISTRIBUTION WIDTH 14.3 % (11.5-14.5); WHITE BLOOD COUNT 7.9 K/mm3 (4.8-10.8)
[2021-06-15 11:34] LABS: ALBUMIN 4.2 g/dL (3.4-4.8); POTASSIUM 4.2 mmol/L (3.5-5.1)
[2021-06-15 11:35] LABS: CALCIUM 9.5 mg/dL (8.3-10.5)
[2021-06-15 11:36] LABS: TOTAL PROTEIN 7.2 g/dL (6.2-8.1)
[2021-06-15 11:38] LABS: TOTAL BILIRUBIN 0.4 mg/dL (0.2-1.2)
[2021-06-15 11:43] LABS: MAGNESIUM 1.99 mg/dL (1.60-2.60)
[2021-06-15 12:59] LABS: ERYTHROCYTE SEDIMENTATION RATE 21 mm/hr (0-30)
[2021-06-16 03:55] LABS: T3 FREE 2.7 pg/mL (1.7-3.7)
== END ==
LOC: LAB 10:42
PROVIDERS: Internal Medicine
DX: K90.9 Intestinal malabsorption, unspecified (principal); E78.2 Mixed hyperlipidemia; E11.9 Type 2 diabetes mellitus without complications; E03.4 Atrophy of thyroid (acquired)

== ENCOUNTER → 2021-06-21 | Outpatient (CLI) | payer MEDICARE, BC | LOC: LAB 15:27 | DX: Z12.11 Encounter for screening for malignant neoplasm of colon (principal) ==

== ENCOUNTER 2021-06-29 11:05 | Outpatient (RCR) | payer MEDICARE, BC ==
[~2021-06-29 11:05] MED LIST changes: -ARICEPT10 M1 PO; -GOOD SENSE ASPI81 M1 PO; -WELLBUTRIN SR150 M2 PO
[2021-08-05] MEDS ORDERED: GOOD SENSE ASPI81 M1 PO (19:15)
[2021-08-05] MEDS ORDERED: ARICEPT10 M1 PO (19:16)
[2021-08-05] MEDS ORDERED: WELLBUTRIN SR150 M2 PO (19:16)
== END 2021-09-27 | disposition home or self-care (01) ==
LOC: PT
DX: R41.3 Other amnesia (principal)

== ENCOUNTER 2021-08-05 18:44 | Emergency (ER) | payer MEDICARE, BC ==
[~2021-08-05] VITALS: Ht 162.6 cm; Wt 80.5 kg
[2021-08-05] MEDS ORDERED: GOOD SENSE ASPI81 M1 PO (19:15)
[2021-08-05] MEDS ORDERED: WELLBUTRIN SR150 M2 PO (19:16)
[2021-08-05] MEDS ORDERED: ARICEPT10 M1 PO (19:16)
[2021-08-05 19:44] LABS: BASO # 0.03 K/mm3 (0.02-0.10); EOS # 0.19 K/mm3 (0.04-0.40); EOS % 2.7 % (1.0-5.0); HEMATOCRIT 38.8 % (37.0-47.0); HEMOGLOBIN 12.9 g/dL (12.5-16.0); LYMPH# 1.93 K/mm3 (1.50-4.00); MEAN CELL VOLUME 85 fl (78-100); MEAN CORPUSCULAR HEMOGLOBIN 28 pg (27-31); MEAN CORPUSCULAR HGB CONC 33 g/dL (33-37); MEAN PLATELET VOLUME 8.8 fl (7.4-10.4); MONO # 0.43 K/mm3 (0.20-0.80); NEU # 4.33 K/mm3 (1.40-6.50); PLATELET COUNT 197 K/mm3 (130-400); RED BLOOD COUNT 4.59 M/mm3 (4.10-5.30); RED CELL DISTRIBUTION WIDTH 13.9 % (11.5-14.5); WHITE BLOOD COUNT 6.9 K/mm3 (4.8-10.8)
[2021-08-05 19:53] LABS: POTASSIUM 4.4 mmol/L (3.5-5.1); SODIUM 139 mmol/L (136-145)
[2021-08-05 19:54] LABS: CALCIUM 9.2 mg/dL (8.3-10.5)
[2021-08-05 19:55] LABS: GLUCOSE 83 mg/dL (65-105); TOTAL PROTEIN 7.1 g/dL (6.2-8.1)
[2021-08-05 19:56] LABS: CARBON DIOXIDE 25 mmol/L (23-31)
[2021-08-05 19:57] LABS: TOTAL BILIRUBIN 0.3 mg/dL (0.2-1.2)
[2021-08-05 20:01] LABS: AST-SGOT 16 U/L (5-34)
[2021-08-05 20:02] LABS: ALT/SGPT 9 U/L (0-55)
[2021-08-05 20:10] LABS: TROPONIN-I < 0.03 ng/mL (<0.030)
[2021-08-05 20:42] LABS: URINE APPEARANCE CLEAR; URINE BILIRUBIN NEGATIVE (NEGATIVE); URINE BLOOD NEGATIVE (NEGATIVE); URINE COLOR YELLOW; URINE GLUCOSE NEGATIVE (NEGATIVE); URINE KETONE NEGATIVE (NEGATIVE); URINE LEUKOCYTE ESTERASE 1+ (NEGATIVE); URINE NITRATE NEGATIVE (NEGATIVE); URINE PROTEIN(semi-quant) NEGATIVE (NEGATIVE); URINE UROBILINOGEN NORMAL (NORMAL)
[2021-08-06 00:06] VITALS: BP 141/78
== END 2021-08-06 00:06 | disposition short-term general hospital (02) ==
LOC: ED 18:44
PROVIDERS: Nurse Practitioner Family
DX: R47.01 Aphasia (principal); F32.A Depression, unspecified; F41.9 Anxiety disorder, unspecified; I10 Essential (primary) hypertension; E11.9 Type 2 diabetes mellitus without complications; E03.9 Hypothyroidism, unspecified; Z79.890 Hormone replacement therapy; Z79.899 Other long term (current) drug therapy
CPT/HCPCS: Q9967

== ENCOUNTER → 2021-10-18 | Outpatient (CLI) | payer MEDICARE, BC ==
[~2021-10-18] MED LIST changes: +ARICEPT10 M1 PO; +GOOD SENSE ASPI81 M1 PO; +WELLBUTRIN SR150 M2 PO
[2021-10-18 13:05] LABS: BASO # 0.03 K/mm3 (0.02-0.10); EOS # 0.11 K/mm3 (0.04-0.40); HEMATOCRIT 39.3 % (37.0-47.0); HEMOGLOBIN 12.8 g/dL (12.5-16.0); LYMPH# 1.23 K/mm3 (1.50-4.00); MEAN CELL VOLUME 86 fl (78-100); MEAN CORPUSCULAR HEMOGLOBIN 28 pg (27-31); MEAN CORPUSCULAR HGB CONC 33 g/dL (33-37); MEAN PLATELET VOLUME 9.2 fl (7.4-10.4); MONO # 0.44 K/mm3 (0.20-0.80); NEU # 3.61 K/mm3 (1.40-6.50); PLATELET COUNT 224 K/mm3 (130-400); RED BLOOD COUNT 4.59 M/mm3 (4.10-5.30); WHITE BLOOD COUNT 5.4 K/mm3 (4.8-10.8)
[2021-10-18 13:10] LABS: POTASSIUM 4.2 mmol/L (3.5-5.1)
[2021-10-18 13:11] LABS: ALBUMIN 4.3 g/dL (3.4-4.8)
[2021-10-18 13:12] LABS: CALCIUM 9.5 mg/dL (8.3-10.5)
[2021-10-18 13:13] LABS: TOTAL PROTEIN 7.2 g/dL (6.2-8.1)
[2021-10-18 13:15] LABS: TOTAL BILIRUBIN 0.5 mg/dL (0.2-1.2)
== END ==
LOC: LAB 11:29
PROVIDERS: Internal Medicine
DX: E11.9 Type 2 diabetes mellitus without complications (principal); E03.4 Atrophy of thyroid (acquired); E78.2 Mixed hyperlipidemia; K90.9 Intestinal malabsorption, unspecified

== ENCOUNTER → 2021-12-07 | Outpatient (CLI) | payer MEDICARE, BC | LOC: MAMMO 15:14 | DX: Z12.31 Encounter for screening mammogram for malignant neoplasm of breast (principal); N64.9 Disorder of breast, unspecified ==

== ENCOUNTER 2022-01-02 16:40 | Emergency (ER) | payer MEDICARE, BC ==
[~2022-01-02] VITALS: Ht 160 cm; Wt 76.4 kg
[2022-01-02] MEDS ORDERED: RISPERDAL 0.5M0.5 MG PO (17:00)
[2022-01-02] MEDS ORDERED: LIPITOR 40MG TA40 MG PO (17:00)
[2022-01-02 17:28] LABS: BASO # 0.04 K/mm3 (0.02-0.10); EOS # 0.04 K/mm3 (0.04-0.40); EOS % 0.2 % (1.0-5.0); HEMATOCRIT 37.9 % (37.0-47.0); HEMOGLOBIN 12.3 g/dL (12.5-16.0); LYMPH# 0.89 K/mm3 (1.50-4.00); MEAN CELL VOLUME 85 fl (78-100); MEAN CORPUSCULAR HEMOGLOBIN 28 pg (27-31); MEAN CORPUSCULAR HGB CONC 33 g/dL (33-37); MONO # 1.24 K/mm3 (0.20-0.80); NEU # 15.88 K/mm3 (1.40-6.50); PLATELET COUNT 223 K/mm3 (130-400); RED BLOOD COUNT 4.47 M/mm3 (4.10-5.30); RED CELL DISTRIBUTION WIDTH 14.3 % (11.5-14.5); WHITE BLOOD COUNT 18.1 K/mm3 (4.8-10.8)
[2022-01-02 17:40] LABS: ALBUMIN 3.8 g/dL (3.4-4.8)
[2022-01-02 17:41] LABS: POTASSIUM 4.2 mmol/L (3.5-5.1)
[2022-01-02 17:43] LABS: TOTAL PROTEIN 6.5 g/dL (6.2-8.1)
[2022-01-02 17:45] LABS: TOTAL BILIRUBIN 0.6 mg/dL (0.2-1.2)
[2022-01-02 20:04] LABS: URINE APPEARANCE HAZY; URINE BILIRUBIN 2+ (NEGATIVE); URINE BLOOD NEGATIVE (NEGATIVE); URINE COLOR YELLOW; URINE GLUCOSE NEGATIVE (NEGATIVE); URINE KETONE NEGATIVE (NEGATIVE); URINE LEUKOCYTE ESTERASE 1+ (NEGATIVE); URINE NITRATE NEGATIVE (NEGATIVE); URINE PROTEIN(semi-quant) 2+ (NEGATIVE); URINE UROBILINOGEN 4 mg/dL (NORMAL); URINE WBC 16-30 /hpf (0-3)
[2022-01-02 20:05] LABS: URINE MUCUS PRESENT (NOT PRESENT)
[2022-01-02] MEDS ORDERED: CEFDINIR300 MG PO (20:59)
[2022-01-02 21:50] VITALS: BP 115/60
== END 2022-01-02 21:50 | disposition home or self-care (01) ==
LOC: ED 16:40
PROVIDERS: Family Medicine
DX: N39.0 Urinary tract infection, site not specified (principal); F32.A Depression, unspecified; E86.9 Volume depletion, unspecified
CPT/HCPCS: J0696; J7030

== ENCOUNTER → 2022-01-10 | Outpatient (CLI) | payer MEDICARE, BC ==
[~2022-01-10] MED LIST changes: +CEFDINIR300 MG PO; +LIPITOR 40MG TA40 MG PO; +RISPERDAL 0.5M0.5 MG PO
[2022-01-10 14:53] LABS: ALBUMIN 4.4 g/dL (3.4-4.8)
[2022-01-10 14:54] LABS: CALCIUM 9.8 mg/dL (8.3-10.5)
[2022-01-10 14:55] LABS: TOTAL PROTEIN 7.5 g/dL (6.2-8.1)
[2022-01-10 14:57] LABS: TOTAL BILIRUBIN 0.6 mg/dL (0.2-1.2)
[2022-01-10 15:09] LABS: URINE APPEARANCE CLEAR; URINE BILIRUBIN NEGATIVE (NEGATIVE); URINE BLOOD NEGATIVE (NEGATIVE); URINE COLOR YELLOW; URINE GLUCOSE NEGATIVE (NEGATIVE); URINE KETONE NEGATIVE (NEGATIVE); URINE LEUKOCYTE ESTERASE TRACE (NEGATIVE); URINE NITRATE NEGATIVE (NEGATIVE); URINE PROTEIN(semi-quant) 1+ (NEGATIVE); URINE UROBILINOGEN NORMAL (NORMAL)
[2022-01-10 15:10] LABS: URINE MUCUS PRESENT (NOT PRESENT)
== END ==
LOC: LAB 14:28
PROVIDERS: Internal Medicine
DX: G47.33 Obstructive sleep apnea (adult) (pediatric) (principal); N39.0 Urinary tract infection, site not specified; E78.2 Mixed hyperlipidemia; K90.9 Intestinal malabsorption, unspecified; E11.9 Type 2 diabetes mellitus without complications; F41.8 Other specified anxiety disorders; I10 Essential (primary) hypertension; M85.80 Other specified disorders of bone density and structure, unspecified site; N76.0 Acute vaginitis

== ENCOUNTER → 2022-01-18 | Outpatient (CLI) | payer MEDICARE, BC | LOC: RAD 11:15 | DX: G31.9 Degenerative disease of nervous system, unspecified (principal) ==

== ENCOUNTER → 2022-04-18 | Outpatient (CLI) | payer MEDICARE, BC ==
[~2022-04-18] MED LIST changes: +ASPIRIN E.C. 8181 MG; +ATROVENT NASAL15 ML NS; +CLONAZEPAM0.5 M1 PO
[2022-04-18 16:02] LABS: ALBUMIN 4.3 g/dL (3.4-4.8)
[2022-04-18 16:03] LABS: POTASSIUM 4.7 mmol/L (3.5-5.1)
[2022-04-18 16:04] LABS: CALCIUM 9.3 mg/dL (8.3-10.5)
[2022-04-18 16:05] LABS: TOTAL PROTEIN 7.1 g/dL (6.2-8.1)
[2022-04-18 16:07] LABS: TOTAL BILIRUBIN 0.4 mg/dL (0.2-1.2)
[2022-04-18 16:30] LABS: BASO # 0.04 K/mm3 (0.02-0.10); EOS # 0.19 K/mm3 (0.04-0.40); EOS % 2.4 % (1.0-5.0); HEMATOCRIT 39.1 % (37.0-47.0); HEMOGLOBIN 12.8 g/dL (12.5-16.0); LYMPH# 1.78 K/mm3 (1.50-4.00); MEAN CELL VOLUME 87 fl (78-100); MEAN CORPUSCULAR HEMOGLOBIN 29 pg (27-31); MEAN CORPUSCULAR HGB CONC 33 g/dL (33-37); MEAN PLATELET VOLUME 9.2 fl (7.4-10.4); MONO # 0.61 K/mm3 (0.20-0.80); NEU # 5.29 K/mm3 (1.40-6.50); PLATELET COUNT 242 K/mm3 (130-400); RED BLOOD COUNT 4.49 M/mm3 (4.10-5.30); RED CELL DISTRIBUTION WIDTH 14.6 % (11.5-14.5); WHITE BLOOD COUNT 7.9 K/mm3 (4.8-10.8)
== END ==
LOC: LAB 15:35
PROVIDERS: Internal Medicine
DX: G43.009 Migraine without aura, not intractable, without status migrainosus (principal); E11.9 Type 2 diabetes mellitus without complications; K21.9 Gastro-esophageal reflux disease without esophagitis

== ENCOUNTER 2022-05-02 14:08 | Emergency (ER) | payer MEDICARE, BC ==
[~2022-05-02 14:08] MED LIST changes: -ASPIRIN E.C. 8181 MG; -ATROVENT NASAL15 ML NS; -CLONAZEPAM0.5 M1 PO
[2022-05-02] MEDS ORDERED: ASPIRIN E.C. 8181 MG (14:31)
[2022-05-02] MEDS ORDERED: CLONAZEPAM0.5 M1 PO (14:32)
[2022-05-02] MEDS ORDERED: ATROVENT NASAL15 ML NS (14:33)
[2022-05-02 15:29] LABS: BASO # 0.04 K/mm3 (0.02-0.10); EOS # 0.11 K/mm3 (0.04-0.40); EOS % 1.7 % (1.0-5.0); HEMATOCRIT 41.1 % (37.0-47.0); HEMOGLOBIN 13.7 g/dL (12.5-16.0); MEAN CELL VOLUME 85 fl (78-100); MEAN CORPUSCULAR HEMOGLOBIN 29 pg (27-31); MEAN CORPUSCULAR HGB CONC 33 g/dL (33-37); MEAN PLATELET VOLUME 9.1 fl (7.4-10.4); MONO # 0.39 K/mm3 (0.20-0.80); NEU # 4.26 K/mm3 (1.40-6.50); PLATELET COUNT 202 K/mm3 (130-400); RED BLOOD COUNT 4.81 M/mm3 (4.10-5.30); RED CELL DISTRIBUTION WIDTH 14.6 % (11.5-14.5); WHITE BLOOD COUNT 6.3 K/mm3 (4.8-10.8)
[2022-05-02 15:42] LABS: ALBUMIN 4.6 g/dL (3.4-4.8); POTASSIUM 4.1 mmol/L (3.5-5.1); SODIUM 140 mmol/L (136-145)
[2022-05-02 15:43] LABS: CALCIUM 10.1 mg/dL (8.3-10.5)
[2022-05-02 15:44] LABS: GLUCOSE 69 mg/dL (65-105); TOTAL PROTEIN 7.9 g/dL (6.2-8.1)
[2022-05-02 15:45] LABS: CARBON DIOXIDE 20 mmol/L (23-31)
[2022-05-02 15:46] LABS: TOTAL BILIRUBIN 0.6 mg/dL (0.2-1.2)
[2022-05-02 15:49] LABS: AST-SGOT 24 U/L (5-34)
[2022-05-02 16:04] LABS: ACETAMINOPHEN < 1 ug/mL; ALCOHOL IN-HOUSE < 10 mg/dL (<10); TROPONIN-I < 0.030 ng/mL (<0.030)
[2022-05-02 16:28] LABS: URINE APPEARANCE CLEAR; URINE BILIRUBIN NEGATIVE (NEGATIVE); URINE BLOOD NEGATIVE (NEGATIVE); URINE COLOR YELLOW; URINE GLUCOSE NEGATIVE (NEGATIVE); URINE KETONE NEGATIVE (NEGATIVE); URINE LEUKOCYTE ESTERASE 1+ (NEGATIVE); URINE MUCUS PRESENT (NOT PRESENT); URINE NITRATE NEGATIVE (NEGATIVE); URINE PROTEIN(semi-quant) TRACE (NEGATIVE); URINE UROBILINOGEN NORMAL (NORMAL)
[2022-05-02] MEDS ORDERED: MACROBID 100 M100 MG PO (17:17)
[2022-05-02 17:47] VITALS: BP 155/72
[2022-05-02 17:50] LABS: ALT/SGPT 14 U/L (0-55)
== END 2022-05-02 17:43 | disposition home or self-care (01) ==
LOC: ED 14:08
PROVIDERS: Nurse Practitioner
DX: F41.9 Anxiety disorder, unspecified (principal); N39.0 Urinary tract infection, site not specified; R51.9 Headache, unspecified; Z28.310 Unvaccinated for COVID-19; Z20.822 Contact with and (suspected) exposure to COVID-19
CPT/HCPCS: J2060; J2550; J7030

== ENCOUNTER → 2022-12-22 | Outpatient (CLI) | payer MEDICARE, BC ==
[~2022-12-22] MED LIST changes: +ASPIRIN E.C. 8181 MG; +ATROVENT NASAL15 ML NS; +CLONAZEPAM0.5 M1 PO
[2022-12-22 12:45] LABS: ALBUMIN 4.1 g/dL (3.4-4.8); POTASSIUM 4.1 mmol/L (3.5-5.1)
[2022-12-22 12:46] LABS: CALCIUM 9.2 mg/dL (8.3-10.5)
[2022-12-22 12:47] LABS: BASO # 0.02 K/mm3 (0.02-0.10); EOS # 0.14 K/mm3 (0.04-0.40); EOS % 2.2 % (1.0-5.0); HEMATOCRIT 39.1 % (37.0-47.0); HEMOGLOBIN 12.6 g/dL (12.5-16.0); LYMPH# 1.57 K/mm3 (1.50-4.00); MEAN CELL VOLUME 88 fl (78-100); MEAN CORPUSCULAR HEMOGLOBIN 28 pg (27-31); MEAN CORPUSCULAR HGB CONC 32 g/dL (33-37); MEAN PLATELET VOLUME 9.4 fl (7.4-10.4); MONO # 0.44 K/mm3 (0.20-0.80); NEU # 4.04 K/mm3 (1.40-6.50); PLATELET COUNT 236 K/mm3 (130-400); RED BLOOD COUNT 4.45 M/mm3 (4.10-5.30); WHITE BLOOD COUNT 6.2 K/mm3 (4.8-10.8)
[2022-12-22 12:48] LABS: TOTAL PROTEIN 6.6 g/dL (6.2-8.1)
[2022-12-22 12:49] LABS: TOTAL BILIRUBIN 0.3 mg/dL (0.2-1.2)
[2022-12-22 12:55] LABS: MAGNESIUM 2.2 mg/dL (1.60-2.60)
[2022-12-22 13:56] LABS: ERYTHROCYTE SEDIMENTATION RATE 23 mm/hr (0-30)
[2022-12-22 14:55] LABS: URINE APPEARANCE HAZY; URINE COLOR YELLOW; URINE PROTEIN(semi-quant) 1+ (NEGATIVE)
[2022-12-22 14:56] LABS: URINE BILIRUBIN NEGATIVE (NEGATIVE); URINE BLOOD NEGATIVE (NEGATIVE); URINE GLUCOSE NEGATIVE (NEGATIVE); URINE KETONE NEGATIVE (NEGATIVE); URINE LEUKOCYTE ESTERASE 1+ (NEGATIVE); URINE MUCUS PRESENT (NOT PRESENT); URINE NITRATE NEGATIVE (NEGATIVE); URINE UROBILINOGEN NORMAL (NORMAL)
== END ==
LOC: LAB 12:19
PROVIDERS: Internal Medicine
DX: Z12.11 Encounter for screening for malignant neoplasm of colon (principal); I10 Essential (primary) hypertension; E78.2 Mixed hyperlipidemia; E11.9 Type 2 diabetes mellitus without complications; E03.4 Atrophy of thyroid (acquired); M85.80 Other specified disorders of bone density and structure, unspecified site; N39.0 Urinary tract infection, site not specified; F41.8 Other specified anxiety disorders

== ENCOUNTER → 2023-10-20 | Outpatient (CLI) | payer MEDICARE, BC ==
[~2023-10-20] MED LIST changes: +ATIVAN1 M1 PO; +BLACK COHOSH540 M1 PO; +LEADER MELATONIN5 MG PO; +ONDANSETRON HYDR4 MG PO; +VIT D3 PO; +VITAMIN B122500 MC1 PO; +ZYPREXA 5MG5 MG PO; +ZYRTEC ALLERGY10 MG PO
[2023-10-20 13:01] LABS: BASO # 0.03 K/mm3 (0.02-0.10); EOS # 0.19 K/mm3 (0.04-0.40); EOS % 2.6 % (1.0-5.0); HEMOGLOBIN 12.5 g/dL (12.5-16.0); MEAN CELL VOLUME 88 fl (78-100); MEAN CORPUSCULAR HEMOGLOBIN 28 pg (27-31); MEAN CORPUSCULAR HGB CONC 32 g/dL (33-37); MEAN PLATELET VOLUME 9.3 fl (7.4-10.4); MONO # 0.43 K/mm3 (0.20-0.80); NEU # 5.12 K/mm3 (1.40-6.50); PLATELET COUNT 289 K/mm3 (130-400); RED BLOOD COUNT 4.45 M/mm3 (4.10-5.30); RED CELL DISTRIBUTION WIDTH 14.3 % (11.5-14.5); WHITE BLOOD COUNT 7.3 K/mm3 (4.8-10.8)
[2023-10-20 13:07] LABS: ALBUMIN 4.4 g/dL (3.4-4.8)
[2023-10-20 13:08] LABS: CALCIUM 9.1 mg/dL (8.3-10.5)
[2023-10-20 13:11] LABS: TOTAL BILIRUBIN 0.4 mg/dL (0.2-1.2)
== END ==
LOC: LAB 12:40
DX: Z01.89 Encounter for other specified special examinations (principal)

== ENCOUNTER → 2024-01-03 | Outpatient (CLI) | payer MEDICARE, BC ==
[2024-01-03 13:32] LABS: PH-URINE 5.5 (5.0 - 8.0); URINE APPEARANCE CLOUDY (CLEAR); URINE BILIRUBIN NEGATIVE (NEGATIVE); URINE BLOOD NEGATIVE (NEGATIVE); URINE COLOR YELLOW (YELLOW); URINE GLUCOSE NEGATIVE (NEGATIVE); URINE KETONE NEGATIVE (NEGATIVE); URINE NITRATE NEGATIVE (NEGATIVE); URINE PROTEIN(semi-quant) TRACE (NEGATIVE)
[2024-01-03 13:33] LABS: URINE LEUKOCYTE ESTERASE TRACE (NEGATIVE); URINE WBC 31-50 /hpf (0-3)
== END ==
LOC: LAB 12:54
PROVIDERS: Internal Medicine
DX: Z12.11 Encounter for screening for malignant neoplasm of colon (principal); Z11.59 Encounter for screening for other viral diseases; E03.4 Atrophy of thyroid (acquired); I10 Essential (primary) hypertension; E78.2 Mixed hyperlipidemia; E11.9 Type 2 diabetes mellitus without complications; M85.832 Other specified disorders of bone density and structure, left forearm

== ENCOUNTER → 2024-01-05 | Outpatient (CLI) | payer MEDICARE, BC | LOC: LAB 12:19 | DX: Z12.11 Encounter for screening for malignant neoplasm of colon (principal); Z11.59 Encounter for screening for other viral diseases; E03.4 Atrophy of thyroid (acquired); I10 Essential (primary) hypertension; E78.2 Mixed hyperlipidemia; E11.9 Type 2 diabetes mellitus without complications; M85.832 Other specified disorders of bone density and structure, left forearm ==

== ENCOUNTER → 2024-01-08 | Outpatient (CLI) | payer MEDICARE, BC ==
[2024-01-08 17:36] LABS: URINE APPEARANCE CLEAR (CLEAR); URINE COLOR YELLOW (YELLOW)
[2024-01-08 17:37] LABS: PH-URINE 5.5 (5.0 - 8.0); URINE BILIRUBIN NEGATIVE (NEGATIVE); URINE BLOOD NEGATIVE (NEGATIVE); URINE GLUCOSE NEGATIVE (NEGATIVE); URINE KETONE NEGATIVE (NEGATIVE); URINE LEUKOCYTE ESTERASE NEGATIVE (NEGATIVE); URINE NITRATE NEGATIVE (NEGATIVE); URINE PROTEIN(semi-quant) NEGATIVE (NEGATIVE); URINE WBC 0-1 /hpf (0-3)
== END ==
LOC: RAD 16:55
PROVIDERS: Internal Medicine
DX: M25.552 Pain in left hip (principal); N18.30 Chronic kidney disease, stage 3 unspecified

== ENCOUNTER → 2024-01-16 | Outpatient (CLI) | payer MEDICARE, BC | LOC: RAD 09:26 | DX: Z12.31 Encounter for screening mammogram for malignant neoplasm of breast (principal); M51.36 Other intervertebral disc degeneration, lumbar region; M47.816 Spondylosis without myelopathy or radiculopathy, lumbar region; M41.86 Other forms of scoliosis, lumbar region; N18.30 Chronic kidney disease, stage 3 unspecified; M25.552 Pain in left hip ==

== ENCOUNTER → 2024-01-22 | Outpatient (CLI) | payer MEDICARE, BC | LOC: MAMMO 14:26 | DX: Z12.31 Encounter for screening mammogram for malignant neoplasm of breast (principal); N28.89 Other specified disorders of kidney and ureter ==

== ENCOUNTER → 2024-03-04 | Outpatient (CLI) | payer MEDICARE, BC ==
[2024-04-24 13:34] LABS: PH-URINE 5.5 (5.0 - 8.0); URINE APPEARANCE CLEAR (CLEAR); URINE COLOR YELLOW (YELLOW)
[2024-04-24 13:35] LABS: URINE BILIRUBIN 1+ (NEGATIVE); URINE BLOOD NEGATIVE (NEGATIVE); URINE GLUCOSE NEGATIVE (NEGATIVE); URINE KETONE NEGATIVE (NEGATIVE); URINE LEUKOCYTE ESTERASE NEGATIVE (NEGATIVE); URINE MUCUS PRESENT (NOT PRESENT); URINE NITRATE NEGATIVE (NEGATIVE); URINE PROTEIN(semi-quant) 2+ (NEGATIVE)
== END ==
LOC: LAB
PROVIDERS: Internal Medicine
DX: N18.30 Chronic kidney disease, stage 3 unspecified (principal)

== ENCOUNTER → 2024-04-16 | Outpatient (CLI) | payer MEDICARE, BC | LOC: RAD 09:00 | DX: N18.30 Chronic kidney disease, stage 3 unspecified (principal) ==

== ENCOUNTER → 2024-05-03 | Outpatient (CLI) | payer MEDICARE, BC ==
[2024-05-03 15:36] LABS: ALBUMIN 4.5 g/dL (3.4-4.8)
[2024-05-03 15:37] LABS: CALCIUM 9.4 mg/dL (8.3-10.5)
[2024-05-03 15:39] LABS: TOTAL PROTEIN 7.2 g/dL (6.2-8.1)
[2024-05-03 15:40] LABS: TOTAL BILIRUBIN 0.5 mg/dL (0.2-1.2)
[2024-05-03 15:46] LABS: MAGNESIUM 1.88 mg/dL (1.60-2.60)
== END ==
LOC: LAB 15:05
PROVIDERS: Internal Medicine
DX: I10 Essential (primary) hypertension (principal); E11.9 Type 2 diabetes mellitus without complications

== ENCOUNTER 2024-06-05 14:48 | Emergency (ER) | payer MEDICARE, BC ==
[~2024-06-05] VITALS: Ht 160 cm; Wt 70.5 kg
[2024-06-05] MEDS ORDERED: NS 1,000 ML IV SCH (15:15)
[2024-06-05 15:17] LABS: BASO # 0.01 K/mm3 (0.02-0.10); EOS # 0.09 K/mm3 (0.04-0.40); EOS % 0.8 % (1.0-5.0); HEMATOCRIT 41.4 % (37.0-47.0); HEMOGLOBIN 13.9 g/dL (12.5-16.0); LYMPH# 1.54 K/mm3 (1.50-4.00); MEAN CELL VOLUME 84 fl (78-100); MEAN CORPUSCULAR HEMOGLOBIN 28 pg (27-31); MEAN CORPUSCULAR HGB CONC 34 g/dL (33-37); MEAN PLATELET VOLUME 9.4 fl (7.4-10.4); MONO # 0.84 K/mm3 (0.20-0.80); NEU # 8.52 K/mm3 (1.40-6.50); PLATELET COUNT 290 K/mm3 (130-400); RED BLOOD COUNT 4.92 M/mm3 (4.10-5.30); RED CELL DISTRIBUTION WIDTH 15.9 % (11.5-14.5)
[2024-06-05 15:24] LABS: ALBUMIN 4.2 g/dL (3.4-4.8)
[2024-06-05 15:26] LABS: CALCIUM 9.3 mg/dL (8.3-10.5)
[2024-06-05 15:27] LABS: TOTAL PROTEIN 6.7 g/dL (6.2-8.1)
[2024-06-05 15:29] LABS: TOTAL BILIRUBIN 0.8 mg/dL (0.2-1.2)
[2024-06-05 15:40] LABS: TROPONIN-I 0.03 ng/mL (0.00-0.033)
[2024-06-05 16:33] LABS: URINE APPEARANCE CLEAR (CLEAR); URINE COLOR YELLOW (YELLOW)
[2024-06-05 16:34] LABS: URINE PROTEIN(semi-quant) 1+ (NEGATIVE)
[2024-06-05 16:35] LABS: URINE BILIRUBIN NEGATIVE (NEGATIVE); URINE BLOOD TRACE-INTACT (NEGATIVE); URINE GLUCOSE 2+ (NEGATIVE); URINE KETONE NEGATIVE (NEGATIVE); URINE LEUKOCYTE ESTERASE TRACE (NEGATIVE); URINE NITRATE NEGATIVE (NEGATIVE)
[2024-06-05] MEDS ORDERED: cefTRIAXone 1 G in Water For Injection,Sterile 10 ML IV ONE (16:45)
[2024-06-05] MEDS ORDERED: BACTRIM DS TAB1 EACH PO (17:00)
[2024-06-05] MEDS ORDERED: DIFLUCAN100 M1 PO (17:00)
[2024-06-05 17:11] VITALS: BP 152/71
== END 2024-06-05 17:11 | disposition home or self-care (01) ==
LOC: ED 14:48
PROVIDERS: Family Medicine
DX: S06.9X9A Unspecified intracranial injury with loss of consciousness of unspecified duration, initial encounter (principal); E11.9 Type 2 diabetes mellitus without complications; I10 Essential (primary) hypertension; E66.9 Obesity, unspecified; W18.30XA Fall on same level, unspecified, initial encounter; Y93.E1 Activity, personal bathing and showering; Y92.002 Bathroom of unspecified non-institutional (private) residence as the place of occurrence of the external cause
CPT/HCPCS: J0696; J7030

== ENCOUNTER → 2024-06-18 | Outpatient (CLI) | payer MEDICARE, BC ==
[~2024-06-18] MED LIST changes: +BACTRIM DS TAB1 EACH PO; +DIFLUCAN100 M1 PO
[2024-06-18 15:49] LABS: PH-URINE 5.5 (5.0 - 8.0); URINE APPEARANCE SLIGHTLY CLOUDY (CLEAR); URINE BILIRUBIN NEGATIVE (NEGATIVE); URINE BLOOD NEGATIVE (NEGATIVE); URINE COLOR YELLOW (YELLOW); URINE GLUCOSE 3+ (NEGATIVE); URINE KETONE NEGATIVE (NEGATIVE); URINE LEUKOCYTE ESTERASE NEGATIVE (NEGATIVE); URINE NITRATE NEGATIVE (NEGATIVE); URINE PROTEIN(semi-quant) 1+ (NEGATIVE)
== END ==
LOC: LAB 14:54
PROVIDERS: Internal Medicine
DX: N39.46 Mixed incontinence (principal)

== ENCOUNTER → 2024-07-04 | Outpatient (CLI) | payer MEDICARE, BC ==
[2024-07-04 15:44] LABS: CLUE CELLS NOT OBSERVED (Not Observd)
== END ==
LOC: LAB 14:21
PROVIDERS: Internal Medicine
DX: N89.8 Other specified noninflammatory disorders of vagina (principal)
CPT/HCPCS: Q0111

== ENCOUNTER → 2024-07-26 | Outpatient (CLI) | payer MEDICARE, BC ==
[2024-07-26 12:19] LABS: BASO # 0.02 K/mm3 (0.02-0.10); EOS # 0.15 K/mm3 (0.04-0.40); EOS % 1.6 % (1.0-5.0); HEMATOCRIT 42.6 % (37.0-47.0); HEMOGLOBIN 14.1 g/dL (12.5-16.0); LYMPH# 2.14 K/mm3 (1.50-4.00); MEAN CELL VOLUME 90 fl (78-100); MEAN CORPUSCULAR HEMOGLOBIN 30 pg (27-31); MEAN CORPUSCULAR HGB CONC 33 g/dL (33-37); MEAN PLATELET VOLUME 9.9 fl (7.4-10.4); MONO # 0.63 K/mm3 (0.20-0.80); NEU # 6.52 K/mm3 (1.40-6.50); PLATELET COUNT 368 K/mm3 (130-400); RED BLOOD COUNT 4.73 M/mm3 (4.10-5.30); RED CELL DISTRIBUTION WIDTH 16.5 % (11.5-14.5); WHITE BLOOD COUNT 9.5 K/mm3 (4.8-10.8)
[2024-07-26 12:24] LABS: ALBUMIN 4.7 g/dL (3.4-4.8)
[2024-07-26 12:25] LABS: CALCIUM 9.7 mg/dL (8.3-10.5)
[2024-07-26 12:27] LABS: TOTAL PROTEIN 7.7 g/dL (6.2-8.1)
[2024-07-26 12:29] LABS: TOTAL BILIRUBIN 0.6 mg/dL (0.2-1.2)
[2024-07-26 12:34] LABS: MAGNESIUM 1.95 mg/dL (1.60-2.60)
== END ==
LOC: LAB 11:59
PROVIDERS: Internal Medicine
DX: I10 Essential (primary) hypertension (principal); E11.9 Type 2 diabetes mellitus without complications; E03.4 Atrophy of thyroid (acquired); E78.2 Mixed hyperlipidemia; R80.9 Proteinuria, unspecified

== ENCOUNTER 2024-09-23 16:09 | Emergency (ER) | payer MEDICARE, BC ==
[~2024-09-23] VITALS: Ht 160 cm; Wt 65.0 kg
[2024-09-23] MEDS ORDERED: VILAZODONE HCL20 MG PO (16:19)
[2024-09-23] MEDS ORDERED: FARXIGA10 MG PO (16:20)
[2024-09-23] MEDS ORDERED: FYAVOLV 0.5 MG1 EACH PO (16:21)
[2024-09-23] MEDS ORDERED: BUSPIRONE HYDRO10 MG PO (16:23)
[2024-09-23] MEDS ORDERED: Ondansetron 4 MG/2 ML VIAL IV ONE (17:00)
[2024-09-23] MEDS ORDERED: NS 1,000 ML IV SCH (17:00)
[2024-09-23] MEDS ORDERED: busPIRone 5 MG TAB PO ONE (18:00)
[2024-09-23] MEDS ORDERED: LORazepam 0.5 MG TABLET PO ONE (18:00)
[2024-09-23] MEDS ORDERED: ZOFRAN ODT4 MG PO (18:35)
[2024-09-23] MEDS ORDERED: Home Ondansetron ODT 4 MG #2 ODT/PACK PO ONE (18:45)
[2024-09-23 18:52] VITALS: BP 151/77
== END 2024-09-23 18:54 | disposition home or self-care (01) ==
LOC: ED 16:09
DX: R11.2 Nausea with vomiting, unspecified (principal); Z79.82 Long term (current) use of aspirin
CPT/HCPCS: J2405; J7030

== ENCOUNTER 2024-10-15 12:58 | Emergency (ER) | payer MEDICARE, BC ==
[~2024-10-15] VITALS: Ht 162.6 cm; Wt 65.0 kg
[~2024-10-15 12:58] MED LIST changes: +BUSPIRONE HYDRO10 MG PO; +FARXIGA10 MG PO; +FYAVOLV 0.5 MG1 EACH PO; +VILAZODONE HCL20 MG PO; +ZOFRAN ODT4 MG PO
[2024-10-15] MEDS ORDERED: VILAZODONE HCL40 MG PO (13:11)
[2024-10-15] MEDS ORDERED: Haloperidol Lactate 5 MG/ML VIAL IM ONE (13:30)
[2024-10-15 13:38] LABS: BASO # 0.01 K/mm3 (0.02-0.10); EOS # 0.17 K/mm3 (0.04-0.40); EOS % 2.7 % (1.0-5.0); HEMATOCRIT 37.7 % (37.0-47.0); HEMOGLOBIN 12.5 g/dL (12.5-16.0); LYMPH# 1.58 K/mm3 (1.50-4.00); MEAN CELL VOLUME 89 fl (78-100); MEAN CORPUSCULAR HEMOGLOBIN 29 pg (27-31); MEAN CORPUSCULAR HGB CONC 33 g/dL (33-37); MEAN PLATELET VOLUME 9.4 fl (7.4-10.4); MONO # 0.48 K/mm3 (0.20-0.80); NEU # 4.01 K/mm3 (1.40-6.50); PLATELET COUNT 272 K/mm3 (130-400); RED BLOOD COUNT 4.25 M/mm3 (4.10-5.30); RED CELL DISTRIBUTION WIDTH 14.2 % (11.5-14.5); WHITE BLOOD COUNT 6.3 K/mm3 (4.8-10.8)
[2024-10-15 13:43] LABS: ALBUMIN 4.1 g/dL (3.4-4.8)
[2024-10-15 13:45] LABS: CALCIUM 9.2 mg/dL (8.3-10.5)
[2024-10-15 13:46] LABS: TOTAL PROTEIN 6.6 g/dL (6.2-8.1)
[2024-10-15 13:48] LABS: TOTAL BILIRUBIN 0.4 mg/dL (0.2-1.2)
[2024-10-15 14:13] LABS: URINE APPEARANCE CLEAR (CLEAR); URINE BILIRUBIN NEGATIVE (NEGATIVE); URINE COLOR YELLOW (YELLOW); URINE GLUCOSE 2+ (NEGATIVE); URINE KETONE NEGATIVE (NEGATIVE); URINE NITRATE NEGATIVE (NEGATIVE); URINE PROTEIN(semi-quant) TRACE (NEGATIVE)
[2024-10-15 14:14] LABS: URINE BLOOD NEGATIVE (NEGATIVE); URINE LEUKOCYTE ESTERASE NEGATIVE (NEGATIVE)
[2024-10-15 15:04] VITALS: BP 149/73
== END 2024-10-15 14:43 | disposition home or self-care (01) ==
LOC: ED 12:58
PROVIDERS: Physician Assistant
DX: F41.9 Anxiety disorder, unspecified (principal)
CPT/HCPCS: J1630

== ENCOUNTER → 2024-10-24 | Outpatient (CLI) | payer MEDICARE, BC ==
[~2024-10-24] MED LIST changes: +VILAZODONE HCL40 MG PO
== END ==
LOC: RAD 16:59
DX: M19.012 Primary osteoarthritis, left shoulder (principal)

== ENCOUNTER → 2024-12-09 | Outpatient (CLI) | payer MEDICARE, BC | LOC: LAB 15:34 | DX: E80.21 Acute intermittent (hepatic) porphyria (principal) ==

== ENCOUNTER → 2024-12-14 | Outpatient (CLI) | payer MEDICARE, BC | LOC: LAB 12:50 | DX: E80.21 Acute intermittent (hepatic) porphyria (principal) ==